=== PATIENT | male | born 1985 | race Caucasian/White ===

== ENCOUNTER 2019-02-26 08:22 | Emergency (ER) | payer OTHER | END 2019-02-26 10:15 | disposition home or self-care (01) | LOC: JERFT 08:22 ==

== ENCOUNTER 2019-08-18 22:50 | Emergency (ER) | payer OTHER ==
[2019-08-18 22:56] VITALS: BP 151/94; PULSE 98; TEMP 100.2; BMI 32.0
[2019-08-18] MEDS ORDERED: ACETAMINOPHEN 325 MG TABLET (FP) PO ONE (23:10)
--- NOTE | 2019-08-19 00:13 | PDOC ---
History of Present Illness - General Chief Complaint: Cold Symptoms Stated Complaint: COLD SYMPTOMS Time Seen by Provider: 08/18/19 23:04 History Source: Patient Exam Limitations: No Limitations Past History - Past Medical History Allergies/Adverse Reactions: Allergies Allergy/AdvReac Type Severity Reaction Status Date / Time No Known Allergies Allergy Verified 08/18/19 22:55 Home Medications: Ambulatory Orders Mag Hydrox/Alh/Smc/Dpha/Lido [Magic Mouthwash *Sjr Formula* -] 5 ml MM Q6HPO PRN #100 ml 02/26/19 Methylprednisolone [Medrol Dose Georges] 4 mg PO ASDIR #21 tablet 02/26/19 COPD: No - Immunization History Immunization Up to Date: Yes - Psycho Social/Smoking Cessation Hx Smoking History: Never smoked Have you smoked in the past 12 months: No Information on smoking cessation initiated: No Hx Alcohol Use: No Drug/Substance Use Hx: No *Physical Exam - Vital Signs Last Vital Signs Temp Pulse Resp BP Pulse Ox 100.2 F H 98 H 17 151/94 96 08/18/19 22:53 08/18/19 22:53 08/18/19 22:53 08/18/19 22:53 08/18/19 22:53 - Physical Exam HEENT: positive: TMs Normal, Pharynx Normal, Rhinorrhea Respiratory/Chest: positive: Lungs Clear, Normal Breath Sounds. negative: Respiratory Distress Cardiovascular: positive: Regular Rhythm, Regular Rate, S1, S2. negative: Murmur Gastrointestinal/Abdominal: positive: Soft. negative: Tender Integumentary: positive: Normal Color Neurologic: positive: Alert Medical Decision Making - Medical Decision Making 34 y/o M with no sig pmh presents with fever x 2 days along with bodyaches, cough, rhinorrhea and congestion. Did not take any meds for fever today. Denies recent travel. Denies sob, cp, abd pain, n/v/d. Did not get flu shot this year Flu negative Given Tylenol with repeat temp of 99.8 patient appears well likely viral uri stable for dc 08/19/19 00:11 Discharge - Discharge Information Problems reviewed: Yes Clinical Impression/Diagnosis: Viral URI Condition: Stable Disposition: HOME - Admission No - Additional Discharge Information Prescription Drug Monitoring Program (I-STOP) results: I-STOP not reviewed - Follow up/Referral Referrals: Jersey Figueroa MD [Primary Care Provider] - 2 Days - Patient Discharge Instructions Patient Printed Discharge Instructions: DI for Viral Upper Respiratory Infection -- Adult Additional Instructions: Thank you for choosing [facility]. It was a pleasure taking care of you. You were tested negative for flu Alternate between Tylenol every 4 and Motrin every 6 hours as needed for fever Follow-up with your doctor in 2 days Return to the Emergency Department if your symptoms worsen or persist or have other concerning symptoms. - Post Discharge Activity
--- NOTE | 2019-08-19 00:16 | PDOC ---
*Physical Exam - Vital Signs Last Vital Signs Temp Pulse Resp BP Pulse Ox 100.2 F H 98 H 17 151/94 96 08/18/19 22:53 08/18/19 22:53 08/18/19 22:53 08/18/19 22:53 08/18/19 22:53 Medical Decision Making - Medical Decision Making 08/19/19 00:16 Case reviewed, agree with assessment and plan Discharge - Discharge Information Problems reviewed: Yes Clinical Impression/Diagnosis: Viral URI Condition: Stable Disposition: HOME - Follow up/Referral Referrals: Jersey Figueroa MD [Primary Care Provider] - 2 Days - Patient Discharge Instructions Patient Printed Discharge Instructions: DI for Viral Upper Respiratory Infection -- Adult Additional Instructions: Thank you for choosing [facility]. It was a pleasure taking care of you. You were tested negative for flu Alternate between Tylenol every 4 and Motrin every 6 hours as needed for fever Follow-up with your doctor in 2 days Return to the Emergency Department if your symptoms worsen or persist or have other concerning symptoms. - Post Discharge Activity
== END 2019-08-19 00:58 | disposition home or self-care (01) ==
LOC: JER 22:50
DX: J06.9 Acute upper respiratory infection, unspecified (principal); B97.89 Other viral agents as the cause of diseases classified elsewhere
CPT/HCPCS: 87804; 99281-25